=== PATIENT | female | born 1960 | race Caucasian/White ===

== ENCOUNTER 2017-09-14 15:35 | Outpatient (CLI) | payer BC ==
--- NOTE | 2017-09-15 10:01 | Ultrasound Report ---
PELVIC ULTRASOUND: 09/14/2017 CLINICAL INDICATION: Postmenopausal bleeding. TECHNIQUE: Transabdominal pelvic ultrasound performed for global evaluation. Transvaginal pelvic ul trasound performed for detailed evaluation. Real-time scanning performed and static images obtained. FINDINGS: The uterus is anteverted, measuring 12.1 x 6.8 x 5.5 cm. The endometrial echo complex ivory sures 3 mm. The myometrium is heterogeneous, with a dominant 5.9 x 5.8 x 4.7 cm posterior intramural leiomyoma present. The right ovary measures 3.9 x 2.5 x 2.2 cm, and appears unremarkable. The left ovary is surgically absent. No free fluid is present. IMPRESSION: LEIOMYOMATOUS UTERUS. NO EVIDENCE OF ENDOMETRIAL HYPERPLASIA. POSTOPERATIVE CHANGES OF LEFT OOPHORECTOMY. JOB #: [id number] EXT JOB #:[id number]
== END 2017-09-14 15:36 | disposition home or self-care (01) ==
LOC: DI 15:35
PROVIDERS: ATTEND Nurse Practitioner Family
DX: D25.1 Intramural leiomyoma of uterus (principal); Z90.721 Acquired absence of ovaries, unilateral
CPT/HCPCS: 76830; 76856

== ENCOUNTER 2017-09-26 15:17 | Outpatient (CLI) | payer BC ==
--- NOTE | 2017-09-29 19:23 | Mammography Report ---
DIGITAL SCREENING MAMMOGRAM: 09/26/2017 CLINICAL INDICATION: A 57-year-old for screening. COMPARISON: Films from [place], [place] dated 06/26/2015, 12/17/2013, 06/09/2012, 06/07/2012. TECHNIQUE: Routine CC and MLO projections were obtained of the breasts. The breasts demonstrate scattered fibroglandular densities bilaterally. No suspicious masses, cluste red microcalcifications, or regions of architectural distortion are identified. IMPRESSION: NEGATIVE EXAMINATION. RECOMMENDATION: ROUTINE ANNUAL SCREENING UNLESS OTHERWISE CLINICALLY INDICATED. BIRADS CATEGORY: 1, NEGATIVE. STANDARD QUALIFYING STATEMENTS 1. This examination was reviewed with the aid of Computed-Aided Detection (CAD). 2. A negative or benign imaging report should not delay biopsy if clinically suspicious findings are present. Consider surgical consultation if warranted. More than 5% of cancers are not identified b y imaging. 3. Dense breasts may obscure an underlying neoplasm. JOB #: [id number] EXT JOB #:[id number]
== END 2017-09-26 15:18 | disposition home or self-care (01) ==
LOC: DI 15:17
PROVIDERS: ATTEND Nurse Practitioner Family
DX: Z12.31 Encounter for screening mammogram for malignant neoplasm of breast (principal)
CPT/HCPCS: 77067

== ENCOUNTER 2019-08-03 10:09 | Outpatient (CLI) | payer BC ==
--- NOTE | 2019-08-06 16:18 | Mammography Report ---
Reason: ROUTINE MAMMO Procedure Date: 08/03/2019 Accession Number: [id number] / [id number] Procedure: MGS - Screening Mammo Dig Bilat CPT Code: FULL RESULT: EXAM: Screening Mammo Dig Bilat DATE: 08/03/2019 10:25 AM CLINICAL HISTORY: Routine screening TECHNIQUE: (B) - Bilateral CC and MLO views were obtained. COMPARISON: 09/26/2017, 06/26/2015, 12/17/2013, 06/09/2012 and 06/07/2012 PARENCHYMAL PATTERN: (A) - The breasts demonstrate scattered fibroglandular densities bilaterally. FINDINGS: No significant interval change. There are no suspicious masses, calcifications, or areas of distortion. IMPRESSION: Negative examination. BI-RADS category 1. RECOMMENDATION: (ANNUAL) - Recommend routine annual screening mammography. BI-RADS CATEGORY: (1) - Negative. STANDARD QUALIFYING STATEMENTS: 1. This examination was not reviewed with the aid of Computer-Aided Detection (CAD). 2. A negative or benign imaging report should not preclude biopsy if clinically suspicious findings are present. 3. Dense breasts may obscure an underlying neoplasm. 4. This examination was reviewed without the aid of 3D breast imaging (tomosynthesis).
== END 2019-08-03 10:10 | disposition home or self-care (01) ==
LOC: DI.S 10:09
PROVIDERS: ATTEND Family Medicine
DX: Z12.31 Encounter for screening mammogram for malignant neoplasm of breast (principal)
CPT/HCPCS: 77067

== ENCOUNTER 2019-11-10 20:07 | Emergency (ER) | payer BC ==
--- NOTE | 2019-11-10 20:14 | ED Physician Documentation ---
History of Present Illness - Stated complaint Stated Complaint: HIGH BP,RACING HEART,DIZZY - Chief complaint Chief Complaint: General - History obtained from History obtained from: Patient - History of Present Illness Timing: Yesterday Pain level max: 0 Pain level now: 0 Improved by: improving since taking extra dose of losartan this evening Worsened by: no apparent exacerbating factors - Additonal information Additional information: patient states she has been having "really high blood pressure since yesterday", "started blood pressure medication in February. She hadn't been taking her blood pressure on a regular basis, but started measuring it since yesterday when she was having mild dizziness, "dry mouth". She notes that she is transitioning from prozac to zoloft which might be contributing to these symptoms. Using her home BP cuff, she has had measurements since yesterday of 253/155, 173/105, 198/121, and 205/125 (she shows me these readings from her home BP cuff which she has with her). She takes losartan 25 MG QD in the morning but she took an extra dose this evening Review of Systems Eyes: denies: Loss of vision, Decreased vision Cardiac: reports: Reviewed and negative Respiratory: reports: Reviewed and negative GI: reports: Reviewed and negative Neurologic: denies: Generalized weakness, Focal weakness, Numbness, Altered mental status, Headache PD PAST MEDICAL HISTORY - Past Medical History Past Medical History: Yes Cardiovascular: Hypertension Psych: Depression - Allergies Allergies/Adverse Reactions: Allergies Allergy/AdvReac Type Severity Reaction Status Date / Time acetaminophen [From Vicodin] Allergy Emesis Verified 11/10/19 20:32 hydrocodone [From Vicodin] Allergy Emesis Verified 11/10/19 20:32 lisinopril Allergy Respiratory Verified 11/10/19 20:32 morphine Allergy Hives Verified 11/10/19 20:32 - Living Situation Living Situation: reports: With spouse/s.o. Living Arrangement: reports: At home - Social History Does the pt smoke?: No PD ED PE NORMAL - Vitals Vital signs reviewed: Yes - General General: Alert and oriented X 3, No acute distress, Well developed/nourished - HEENT HEENT: Moist mucous membranes - Neck Neck: Supple, no meningeal sign - Cardiac Cardiac: RRR, No murmur, No gallop, No rub - Respiratory Respiratory: No respiratory distress, Clear bilaterally - Neuro Neuro: Alert and oriented X 3, Normal speech Results - Vitals Vitals: Vital Signs - 24 hr 11/10/19 11/10/19 11/10/19 20:09 20:14 22:02 Temperature 36.4 C L 36.4 C L Heart Rate 78 78 66 Respiratory 16 14 14 Rate Blood Pressure 160/99 H 160/99 H 152/79 H O2 Saturation 100 100 97 Oxygen O2 Source Room air - EKG (time done) No standard instances Rate: Rate (enter#) (75) Rhythm: NSR [place]: Normal Intervals: Normal ND QRS: Normal Ischemia: Normal ST segments - Labs Labs: Laboratory Tests 11/10/19 11/10/19 20:40 20:40 WBC 7.0 RBC 4.33 Hgb 13.4 Hct 39.4 MCV 91.0 MCH 30.9 MCHC 34.0 RDW 12.7 Plt Count 232 MPV 10.1 Neut # (Auto) 3.6 Lymph # (Auto) 2.5 [place] # (Auto) 0.7 Eos # (Auto) 0.2 Baso # (Auto) 0.0 Absolute Nucleated RBC 0.00 Nucleated RBC % 0.0 Sodium 141 Potassium 3.7 Chloride 103 Carbon Dioxide 29 Anion Gap 9.0 BUN 20 Creatinine 0.8 Estimated GFR (MDRD) 74 L Glucose 100 Calcium 9.1 PD MEDICAL DECISION MAKING - ED course Complexity details: reviewed results, re-evaluated patient, considered differential, d/w patient ED course: BP steadily improved during ED stay without intervention, although patient did take an extra dose of losartan prior to coming to ED. ED RN noted that patient measured her blood pressure during ED stay and her device had significantly higher reading than that of the ED monitor. Patient does not have symptoms that would be likely attributable to her high blood pressure; I suspect they are more likely due to the transitioning (titrating down/off) her prozac and starting zoloft. The symptoms she describes are mild and she does not seem so much bothered by them as concerned as to whether her HTN is causative. I discussed with her the importance of following up with PMD for recommendations regarding her antihypertensive medication, as well as returning to ED if she feels worse in any way, particularly if she develops chest discomfort/pain/pressure, severe headache, visual changes, numbness, weakness, confusion. Departure - Departure Disposition: 01 Home, Self Care Clinical Impression: Hypertension Qualifiers: Hypertension type: essential hypertension Qualified Code(s): I10 - Essential (primary) hypertension Condition: Good Instructions: ED Hypertension Conf Out Of Control Follow-Up: Juan Leigh MD [Primary Care Provider] - Within 1 week Discharge Date/Time: 11/10/19 22:02
[2019-11-10 20:49] LABS: BASOPHILS % (AUTO) 0.6 %; EOSINOPHILS # (AUTO) 0.2 10^3/uL (0.0-0.7); EOSINOPHILS % (AUTO) 2.7 %; HGB - HEMOGLOBIN 13.4 g/dL (12.0-16.0); LYMPHOCYTES # (AUTO) 2.5 10^3/uL (1.5-3.5); LYMPHOCYTES % (AUTO) 35.3 %; MEAN CORPUSCULAR HEMOGLOBIN 30.9 pg (27.0-31.0); MEAN PLATELET VOLUME 10.1 fL (7.9-10.8); MONOCYTES # (AUTO) 0.7 10^3/uL (0.0-1.0); MONOCYTES % (AUTO) 9.3 %; NEUTROPHILS # (AUTO) 3.6 10^3/uL (1.5-6.6); NEUTROPHILS % (AUTO) 51.8 %; PLT - PLATELET COUNT 232 10^3/uL (130-450); RED BLOOD COUNT 4.33 10^6/uL (4.20-5.40); RED CELL DISTRIBUTION WIDTH 12.7 % (12.0-15.0)
[2019-11-10 21:02] LABS: CALCIUM 9.1 mg/dL (8.5-10.3); CREATININE 0.8 mg/dL (0.4-1.0)
[2019-11-10 22:04] VITALS: BP 152/79
== END 2019-11-10 22:02 | disposition home or self-care (01) ==
LOC: ED 20:07
DX: I10 Essential (primary) hypertension (principal)
CPT/HCPCS: 36415; 80048; 85025; 93005; 99283; 99284

== ENCOUNTER 2020-02-01 15:59 | Outpatient (CLI) | payer BC ==
--- NOTE | 2020-02-02 04:57 | Ultrasound Report ---
Reason: POSTMENOPAUSAL USING HORMONE REPLACEMENT Procedure Date: 02/01/2020 Accession Number: [id number] / [id number] Procedure: US - Transvaginal CPT Code: Final Report FULL RESULT: EXAM: PELVIC ULTRASOUND EXAM DATE: 02/01/2020 05:58 PM. CLINICAL HISTORY: POSTMENOPAUSAL USING HORMONE REPLACEMENT. COMPARISON: PELVIC W/TRANSVAGINAL 09/14/2017 3:52 PM. TECHNIQUE: Realtime transvaginal pelvic scan performed to identify the uterus and adnexa and as an overview of other pelvic structures, for a detailed evaluation of the uterus and adnexa, with static image documentation. FINDINGS: Uterus: 10.8 x 5.0 x 6.1 cm, volume 172 cc. Anteverted position. Heterogeneous echotexture. Masses: Multiple leiomyomata are seen. The largest are intramural and located anteriorly measuring 3.2 x 2.3 x 2.2 cm and posteriorly measuring 1.5 x 2.0 x 1.8 cm. Endometrium: 4 mm. Not well seen as it is largely obscured by multiple fibroids. Cervix: Limited visualization. Right Ovary: 2.7 x 1.2 x 1.7 cm, volume 2.7 cc. Normal echotexture and blood flow. Left Ovary: Surgically absent. Free Fluid: None. Other: None. IMPRESSION: Multiple uterine leiomyomata. Limited evaluation of the endometrium given the presence of multiple uterine fibroids. RADIA
== END 2020-02-01 16:00 | disposition home or self-care (01) ==
LOC: DI 15:59
PROVIDERS: ATTEND Nurse Practitioner Family
DX: D25.1 Intramural leiomyoma of uterus (principal); Z79.890 Hormone replacement therapy
CPT/HCPCS: 76830

== ENCOUNTER 2021-01-21 12:31 | Outpatient (CLI) | payer BC ==
--- NOTE | 2021-01-26 09:31 | Mammography Report ---
BILATERAL DIGITAL SCREENING MAMMOGRAM 3D/2D: 01/21/2021 CLINICAL: Routine screening. Comparison is made to exams dated: 08/03/2019 mammogram, 09/26/2017 mammogram, and 06/26/2015 mammogram - [facility]. There are scattered fibroglandular elements in both breasts. No significant masses, calcifications, or other findings are seen in either breast. There has been no significant interval change. IMPRESSION: NEGATIVE There is no mammographic evidence of malignancy. A 1 year screening mammogram is recommended. This exam was interpreted at Station ID: [id number]. NOTE: For mammograms, a report in lay terms will be sent to the patient. Approximately 15% of breast malignancies will not be visualized mammographically. In the management of a palpable breast mass, a negative mammogram must not discourage biopsy of a clinically suspicious lesion. Electronically Signed By: Tyrese Stephenson M.D. ar/[email or web address]:01/23/2021 13:56:30 ACR BI-RADS Category 1: Negative 3341F PARENCHYMAL PATTERN: (A) - The breast(s) demonstrate(s) scattered fibroglandular densities. BI-RADS CATEGORY: (1) - 1 RECOMMENDATION: (ANNUAL) - Recommend routine annual screening mammography. [id number] 1 year screening LATERALITY: (B)
== END 2021-01-21 12:32 | disposition home or self-care (01) ==
LOC: DI 12:31
PROVIDERS: ATTEND Family Medicine
DX: Z12.31 Encounter for screening mammogram for malignant neoplasm of breast (principal)

== ENCOUNTER 2021-06-05 21:38 | Emergency (ER) | payer BC ==
[2021-06-05 22:02] LABS: BILIRUBIN,URINE NEGATIVE (NEGATIVE); GLUCOSE, URINE (UA) NEGATIVE (NEGATIVE); KETONES,URINE (UA) NEGATIVE (NEGATIVE); LEUKOCYTE ESTERASE, URINE TRACE (NEGATIVE); NITRITE,URINE POSITIVE (NEGATIVE); OCCULT BLOOD,URINE MODERATE (NEGATIVE)
[2021-06-05 22:07] LABS: CLARITY,URINE HAZY (CLEAR)
[2021-06-05 22:14] LABS: BACTERIA,URINE Few /HPF (None Seen); SQUAMOUS EPITHELIAL CELL,UR RARE Squamous (<= Few); WBC,URINE >25 /HPF (0-5)
--- NOTE | 2021-06-05 22:49 | ED Physician Documentation ---
PD HPI ABD PAIN - Stated complaint Stated Complaint: LOW BACK/ABD PX, NAUSEA - Chief complaint Chief Complaint: Abd Pain - History obtained from History obtained from: Patient - History of Present Illness Timing - onset: How many days ago (1-2) Timing - duration: Days Timing - details: Gradual onset Quality: Dull, Pain Location: Suprapubic Radiation: Left flank Worsened by: Other (urinating) Associated symptoms: Nausea. No: Fever, Vomiting Recently seen: Clinic - Additional information Additional information: diagnosed with UTI and finished 10 days of bactrim, competed 3 days ago. she c/o 1-2 days of left flank pain, urinary frequency, burning dysuria. denies fever. left flank pain started earlier today Review of Systems Constitutional: denies: Fever, Chills, Sweats Cardiac: reports: Reviewed and negative Respiratory: reports: Reviewed and negative GI: reports: Abdominal Pain. denies: Nausea, Vomiting : reports: Dysuria, Frequency Skin: denies: Rash PD PAST MEDICAL HISTORY - Past Medical History Past Medical History: Yes Cardiovascular: Hypertension Psych: Depression - Past Surgical History Past Surgical History: Yes General: Other Ortho: Hip replacement - Present Medications Home Medications: Ambulatory Orders Medication Instructions Recorded Confirmed Amox/Clav 875/125 [Augmentin 1 tablet PO Q12H 10 Days #20 tablet 06/05/21 875/125 Tab] FLUoxetine [PROzac] 30 mg PO DAILY 06/05/21 06/05/21 Losartan Potassium 25 mg PO DAILY 06/05/21 06/05/21 Pravastatin [Pravachol] 40 mg PO DAILY 06/05/21 06/05/21 oxyCODONE [Roxicodone] 5 - 10 mg PO Q6H PRN #14 tablet 06/05/21 - Allergies Allergies/Adverse Reactions: Allergies Allergy/AdvReac Type Severity Reaction Status Date / Time acetaminophen [From Vicodin] Allergy Emesis Verified 06/05/21 21:48 hydrocodone [From Vicodin] Allergy Emesis Verified 06/05/21 21:48 lisinopril Allergy Respiratory Verified 06/05/21 21:48 morphine Allergy Hives Verified 06/05/21 21:48 - Social History Does the pt smoke?: No Smoking Status: Never smoker Does the pt drink ETOH?: Yes Does the pt have substance abuse?: No - Immunizations Immunizations are current?: Yes - POLST Patient has POLST: No PD ED PE NORMAL - Vitals Vital signs reviewed: Yes - General General: Alert and oriented X 3, No acute distress, Well developed/nourished - HEENT HEENT: Moist mucous membranes - Neck Neck: Supple, no meningeal sign - Cardiac Cardiac: RRR, No murmur - Respiratory Respiratory: No respiratory distress, Clear bilaterally - Abdomen Abdomen: Soft, Non tender - Back Back: No CVA TTP - Derm Derm: Normal color, Warm and dry, No rash Results - Vitals Vitals: Oxygen O2 Source Room air - Labs Labs: Microbiology 06/05/21 21:50 Urine Culture - Final Urine,Clean Catch Less Than 10,000 COLONIES/ML UROGENITAL KASIA Laboratory Tests 06/05/21 21:50 Urine Color ORANGE Urine Clarity HAZY Urine pH ... Ur Specific [place] 1.015 Urine Protein ... Urine Glucose (UA) NEGATIVE Urine Ketones NEGATIVE Urine Occult Blood MODERATE H Urine Nitrite POSITIVE H Urine Bilirubin NEGATIVE Urine Urobilinogen ... Ur Leukocyte Esterase TRACE H Urine RBC 11-25 H Urine WBC >25 H Ur Squamous Epith Cells RARE Squamous Urine Bacteria Few Ur Microscopic Review INDICATED Urine Culture Comments INDICATED PD MEDICAL DECISION MAKING - ED course Complexity details: reviewed results, re-evaluated patient, considered differential, d/w patient ED course: HPI and UA s/o UTI. Will treat for early pyeloneprhitis, given c/o left flank pain (but no CVAT, and thus CT deferred until/unless worse) Departure - Departure Disposition: 01 Home, Self Care Clinical Impression: Pyelonephritis Condition: Good Instructions: ED Kidney Infec Female Follow-Up: Juan Leigh MD [Primary Care Provider] - Within 3 Days Prescriptions: Amox/Clav 875/125 [Augmentin 875/125 Tab] 1 tablet PO Q12H 10 Days #20 tablet oxyCODONE [Roxicodone] 5 - 10 mg PO Q6H PRN #14 tablet PRN Reason: Pain Discharge Date/Time: 06/05/21 23:47
[2021-06-05] MEDS ORDERED: AMOX/CLAV 875 MG/125 MG TABLET PO STA (23:22)
[2021-06-05] MEDS ORDERED: cefTRIAXone 1 GM VIAL IM STA (23:22)
[2021-06-05] MEDS ORDERED: LIDOCAINE 1% 2 ML VIAL MC ONE (23:22)
[2021-06-05] MEDS ORDERED: oxyCODONE/ACET 5/325 Prepack 4 PO STA (23:23)
[2021-06-05 23:47] VITALS: BP 116/72
== END 2021-06-05 23:47 | disposition home or self-care (01) ==
LOC: ED 21:38
DX: N12 Tubulo-interstitial nephritis, not specified as acute or chronic (principal)
CPT/HCPCS: 81001; 87086; 96372; 99283; 99284; A9270; 81003

== ENCOUNTER 2022-09-20 09:56 | Outpatient (CLI) | payer BC ==
--- NOTE | 2022-09-20 12:14 | DEXA Report ---
PROCEDURE: Dexa Spine and/or Hip INDICATIONS: POST MENOPAUSAL TECHNIQUE: Dual energy x-ray absorptiometry (DXA) was performed on a [facility]. Regions measur ed are the AP Spine, femoral neck, and if needed forearm. COMPARISON: None. FINDINGS: Lumbar Spine: Bone Mineral Density 1.351 g/cm/cm,T score 1.4, normal Left forearm: Bone Mineral Density 0.753 g/cm/cm, T score 1.3, normal (T score greater or equal to -1.0: NORMAL) (T score from -1.1 to -2.4: OSTEOPENIA) (T score less than or equal to -2.5 to: OSTEOPOROSIS) Impression: Bone mineral density within normal limits at the lumbar spine and left forearm. Patients with diagnosis of osteoporosis or osteopenia should have regular bone mineral density assess ment. For those eligible for Medicare, routine testing is allowed once every 2 years. Testing frequ ency can be increased for patients who have rapidly progressing disease or for those who are receivin g medical therapy to restore bone mass. Reviewed by: Tyrese Stephenson MD on 09/20/2022 12:12 PM PDT Approved by: Tyrese Stephenson MD on 09/20/2022 12:12 PM PDT Station ID: [id number]
== END 2022-09-20 09:57 | disposition home or self-care (01) ==
LOC: DI 09:56
PROVIDERS: ATTEND Nurse Practitioner Family
DX: Z78.0 Asymptomatic menopausal state (principal)

== ENCOUNTER 2023-05-30 14:02 | Outpatient (CLI) | payer BC ==
--- NOTE | 2023-06-01 10:35 | Mammography Report ---
BILATERAL DIGITAL SCREENING MAMMOGRAM 3D/2D: 05/30/2023 CLINICAL: Routine screening. Comparison is made to exams dated: 01/21/2021 mammogram, 08/03/2019 mammogram, 06/26/2015 mammogram, mammogram, and 12/17/2013 mammogram - [facility]. There are scattered areas of fibroglandular density in both breasts (category b / 25%-50% glandular t issue). There is a possible developing 0.4 cm oval equal density focal asymmetry in the left breast at 1 o'cl ock middle depth. This is more prominent. No other significant masses, calcifications, or other findings are seen in either breast. IMPRESSION: INCOMPLETE: NEEDS ADDITIONAL IMAGING EVALUATION The possible developing 0.4 cm oval equal density focal asymmetry in the left breast is indeterminate . Additional views with possible ultrasound are recommended. Based on the Tyrer Cuzick model (a risk assessment model) the patients lifetime risk is 7.6% and her 10 year risk is 3.1%. According to the ACR, ACS, and NCCN guidelines, an annual breast MRI exam justin g with mammogram is recommended if the patients lifetime risk is 20% or greater. This exam was interpreted at Station ID: [id number]. NOTE: For mammograms, a report in lay terms will be sent to the patient. Approximately 15% of breast malignancies will not be visualized mammographically. In the management of a palpable breast mass, a negative mammogram must not discourage biopsy of a clinically suspicious lesion. Electronically Signed By: Akbar Babcock M.D. aty/:05/30/2023 19:16:00 ACR BI-RADS Category 0: Incomplete 3340F PARENCHYMAL PATTERN: (A) - The breast(s) demonstrate(s) scattered fibroglandular densities. BI-RADS CATEGORY: (0) - 0 Mammo and [place] [id number] Immediate follow-up LATERALITY: (L)
== END 2023-05-30 14:03 | disposition home or self-care (01) ==
LOC: DI.S 14:02
PROVIDERS: ATTEND Nurse Practitioner Family
DX: Z12.31 Encounter for screening mammogram for malignant neoplasm of breast (principal); R92.8 Other abnormal and inconclusive findings on diagnostic imaging of breast

== ENCOUNTER 2023-06-21 10:11 | Outpatient (CLI) | payer BC ==
--- NOTE | 2023-06-22 11:04 | Ultrasound Report ---
LIMITED ULTRASOUND OF LEFT BREAST: 06/21/2023 CLINICAL: Patient returns today to evaluate a focal asymmetry in the left breast. Comparison is made to exams dated: 06/21/2023 mammogram, 05/30/2023 mammogram, 01/21/2021 mammogram, and 08/03/2019 mammogram - [facility]. Color flow and real-time ultrasound of the left breast 12-1 o'clock region were performed. Purdy scal e images of the real-time examination were reviewed. There is a benign 0.3 cm oval simple cyst in the left breast at 1 o'clock middle depth 5 cm from the nipple. IMPRESSION: BENIGN There is no sonographic evidence of malignancy. The 0.3 cm oval simple cyst in the left breast is benign. A 1 year screening mammogram is recommended. Exam findings were conveyed to the patient. This exam was interpreted at Station ID: [id number]. Electronically Signed By: Jean Mendoza M.D. slc/:06/21/2023 11:14:20 Ultrasound BI-RADS: 2 Benign BI-RADS CATEGORY: (2) - 2 Mammogram [id number] 1 year screening LATERALITY: (B)
--- NOTE | 2023-06-22 11:04 | Mammography Report ---
UNILATERAL LEFT DIGITAL DIAGNOSTIC MAMMOGRAM 3D/2D WITH SPOT COMPRESSION: 06/21/2023 CLINICAL: Patient returns today to evaluate a focal asymmetry in the left breast. Comparison is made to exams dated: 05/30/2023 mammogram, 01/21/2021 mammogram, 08/03/2019 mammogram, and 09/26/2017 mammogram - [facility]. There are scattered areas of fibroglandular density in the left breast (category b / 25%-50% glandula r tissue). There is a 0.4 cm oval focal asymmetry in the left breast at 1 o'clock middle depth. No other significant masses or calcifications are seen in the breast. IMPRESSION: INCOMPLETE: NEEDS ADDITIONAL IMAGING EVALUATION The 0.4 cm oval focal asymmetry in the left breast most likely is a cyst and is indeterminate. A targeted ultrasound is recommended and will immediately follow. Based on the Tyrer Cuzick model (a risk assessment model) the patients lifetime risk is 7.4% and her 10 year risk is 3.2%. According to the ACR, ACS, and NCCN guidelines, an annual breast MRI exam justin g with mammogram is recommended if the patients lifetime risk is 20% or greater. This exam was interpreted at Station ID: [id number]. NOTE: For mammograms, a report in lay terms will be sent to the patient. Approximately 15% of breast malignancies will not be visualized mammographically. In the management of a palpable breast mass, a negative mammogram must not discourage biopsy of a clinically suspicious lesion. Electronically Signed By: Jean Mendoza M.D. slc/:06/21/2023 10:52:52 ACR BI-RADS Category 0: Incomplete 3340F PARENCHYMAL PATTERN: (A) - The breast(s) demonstrate(s) scattered fibroglandular densities. BI-RADS CATEGORY: (0) - 0 Ultrasound [id number] Immediate follow-up LATERALITY: (B)
== END 2023-06-21 10:12 | disposition home or self-care (01) ==
LOC: DI 10:11
PROVIDERS: ATTEND Nurse Practitioner Family
DX: N60.02 Solitary cyst of left breast (principal)

== ENCOUNTER 2024-02-20 08:00 | Outpatient (CLI) | payer BC | END 2024-02-20 23:59 | disposition home or self-care (01) | LOC: LAB 08:00 | PROVIDERS: ATTEND Registered Nurse | DX: R30.0 Dysuria (principal) | CPT/HCPCS: 87077; 87086; 87181 ==

== ENCOUNTER 2024-03-19 08:00 | Outpatient (CLI) | payer BC | END 2024-03-19 23:59 | disposition home or self-care (01) | LOC: LAB.S 08:00 | PROVIDERS: ATTEND Physician Assistant Medical | DX: R30.0 Dysuria (principal) | CPT/HCPCS: 87086 ==